=== PATIENT | female | born 1945 | race Caucasian/White ===

== ENCOUNTER 2017-11-04 10:07 | Emergency (ER) | payer MEDICARE, OTHER ==
--- NOTE | 2017-11-04 10:53 | ERNOTE ---
GI Bleeding/Rectal Pain ER Presenting Symptoms: rectal bleeding Time Seen by Provider: 11/04/17 10:12 Source: patient Exam Limitations: no limitations Immunizations: IMMUNIZATION HX Immunizations Up to Date Yes Allergies/Adverse Reactions: Allergies aspirin Allergy (Verified 11/04/17 10:16) omeprazole Allergy (Verified 11/04/17 10:16) Home Medications: HOME MEDICATIONS Ascorbic Acid [Vitamin C] 500 mg PO DAILY 08/05/14 [Last Taken Unknown] Aspirin [Aspirin Enteric Coated] 81 mg PO DAILY 08/05/14 [Last Taken Unknown] Blood Sugar Diagnostic, Drum [Accu-Chek Compact] 1 each MC DAILY 08/05/14 [Last Taken Unknown] Calcium Carbonate/Vitamin D3 [Calcium 600 + Vit D 400 Tablet] 1 each PO DAILY [Last Taken Unknown] Cholecalciferol (Vitd3)/Vit K2 [D3 + K2 Dots 1,000 Units Tab] 2 each PO DAILY [Last Taken Unknown] Lactobacillus Combination No.4 [Probiotic] 1 each PO DAILY 08/05/14 [Last Taken Unknown] Levothyroxine Sodium [Synthroid] 75 mcg PO DAILY 08/05/14 [Last Taken Unknown] Magnesium 250 mg PO DAILY 08/05/14 [Last Taken Unknown] [place]-3 Fatty Acids/Fish Oil [Fish Oil 1,000 mg Capsule] 1 each PO DAILY [Last Taken Unknown] Omeprazole [Prilosec] 20 mg PO BID 08/05/14 [Last Taken Unknown] Verapamil HCl [Calan] 120 mg PO DAILY 08/05/14 [Last Taken Unknown] Vitamin B Complex [B Complex] 1 each PO DAILY 08/05/14 [Last Taken Unknown] Vitamin E (Dl,Tocopheryl Acet) [Vitamin E] 400 units PO DAILY 08/05/14 [Last Taken Unknown] Narrative: Patient noticed dark stools yesterday (formed, not hard), today starting at 06: 00 she has had 2-3 stools mixed with bright red blood, last was mainly blood. She had intermittent pain in her left upper abdomen, non currently, has had regular colonoscopies which were normal, but she has multiple siblings with colon cancer. She has had URI symptoms for about a week, called her doctor about it and was started on a Z-pack over the phone - Patient's Past Medical History Patient History - Medical: Diabetes Type 2, Hypothyroidism Patient History - Cardiac/Respiratory: Hypertension, Hyperlipidemia - Social History Living Situations: home Psych History: No pertinent hx Alcohol Use: none Drug Use: none - Immunizations Immunizations Up to Date: Yes Physical Exam - Physical Exam General Appearance: Present: wd/wn, alert, no apparent distress Head Exam: Present: normal inspection Respiratory: Present: no respiratory distress, normal breath sounds, no accessory muscle use, lungs clear Cardiovascular/Chest: Present: regular rate, rhythm, no murmur Gastrointestinal/Abdominal: Present: normal bowel sounds, nontender, nondistended, soft Rectal Exam: Present: nontender, normal rectal tone, other - no stool on finger Neurological Exam: Present: alert, oriented, normal mood/affect Skin Exam: Present: normal color, warm/dry ED Progress - Results and Orders Patient's Lab Results:: I have reviewed the patient's lab results. - Vital Signs Patient's Vital Signs:: I have reviewed the patient's vital signs. Vital Signs: Vital Signs 11/04/17 10:12 Temperature 36.4 C Pulse Rate 72 Respiratory 12 Rate Blood Pressure 137/82 O2 Sat by Pulse 98 Oximetry - X-Ray X-Ray #1 X-Ray: abdomen - calcification, no acute findings Interpretation: Reviewed by me - Progress/Reassessment Progress Note-Subjective: 11/04/17 10:43 anoscopy: no blood, no stool, no signs of injury 11/04/17 11:39 no more bleeding, discussed test results and plan with patient and last colonoscopy 07/2014 normal, appointment made for consultation for repeat colonoscopy Departure Clinical Impression: Acute lower GI bleeding - Departure Disposition: Home self-care Condition: Good Instructions: Gastrointestinal Bleeding, [id number] Additional Instructions: stop the aspirin till you are seen for the colonoscopy Referrals: Renée Welch DO [Primary Care Provider] - Umang Egan MD [Associate] - 11/18/17 3:00 pm
[2017-11-04 10:55] LABS: Hematocrit 39.6 % (37.0-47.0); Hemoglobin 13.8 gm/dL (12.5-16.0); Mean Cell Volume 94.1 fl (78-100); Mean Corpuscular Hemoglobin 32.8 pg (27-31); Mean Corpuscular Hgb Conc 34.8 g/dl (32-36); Mean Platelet Volume 10.5 fl (6.0-9.5); Neutrophil # 3.1 K/mm3 (1.3-6.0); Platelet Count 200 K/mm3 (150-450); Red Blood Count 4.21 M/mm3 (4.2-5.4); White Blood Count 6.4 K/mm3 (4.0-10.5)
[2017-11-04 10:59] LABS: Urine Bilirubin Negative (NEGATIVE); Urine Blood Negative /ul (NEGATIVE); Urine Ketone Negative (NEGATIVE); Urine Nitrite Negative (NEGATIVE); Urine Protein Negative (NEGATIVE); Urine Specific Gravity 1.015 SP.GR. (1.005-1.010); Urine Urobilinogen Normal (NORMAL)
[2017-11-04 11:05] LABS: Prothrombin Time (Patient) 10.1 Seconds (9.0-11.0)
[2017-11-04 11:06] LABS: INR 1.01 INR (0.90-1.10)
[2017-11-04 11:08] LABS: Albumin * 3.7 gm/dl (3.4-5.0); Anion Gap 12.1 mmol/L (6.8-13.8); BUN/Creatinine Ratio 26.1 (9.0-21.6); Bilirubin, Total 0.3 mg/dL (0.0-1.1); Ca. Corrected For Albumin 9.2 mg/dL (8.4-10.2); Calcium * 9.3 mg/dL (7.9-10.9); Carbon Dioxide 28.1 mmol/L (24-32.6); Potassium 4.2 mmol/L (3.4-4.6); Total Protein 7.4 gm/dL (6.2-8.2)
[2017-11-04 11:12] LABS: Urine Appearance Clear; Urine Color Yellow
[2017-11-04 11:13] LABS: Urine Bacteria TRACE; Urine RBC None Seen /hpf (0-5); Urine WBC None Seen /hpf (0-5)
[2017-11-04 11:32] VITALS: BP 134/86
== END 2017-11-04 11:45 | disposition home or self-care (01) ==
LOC: ER 10:07
DX: K92.2 Gastrointestinal hemorrhage, unspecified (principal)